=== PATIENT | female | born 1985 | race Hispanic/Latino ===

== ENCOUNTER 2022-11-29 18:33 | Emergency (ER) | payer OTHER ==
[~2022-11-29] VITALS: Ht 144.8 cm; Wt 72.6 kg
[2022-11-29 18:37] VITALS: BP 160/96; PULSE 106; RESP 16; O2SAT 99
[2022-11-29 18:54] LABS: BASOPHILS # (AUTO) 0.05 K/uL (0.00-0.20); BASOPHILS % (AUTO) 0.5 % (0.0-5.0); EOSINOPHILS # (AUTO) 0.14 K/uL (0.00-0.70); EOSINOPHILS % (AUTO) 1.5 % (0.0-8.0); HEMATOCRIT 45.9 % (36-48); IMMATURE GRANULOCYTE ABSOLUTE 0.03 K/uL (0-1); LYMPHOCYTES # (AUTO) 2.9 K/uL (1.0-4.8); LYMPHOCYTES % (AUTO) 31.8 % (21.0-51.0); MEAN CORPUSCULAR HEMOGLOBIN 31.3 pg (27.0-33.0); MEAN CORPUSCULAR HGB CONC 35.5 g/dL (32.0-36.0); MEAN CORPUSCULAR VOLUME 88.1 fL (79-99); MONOCYTES # (AUTO) 0.5 K/uL (0.1-1.0); MONOCYTES % (AUTO) 5.6 % (3.0-13.0); NEUTROPHILS # (AUTO) 5.6 K/uL (1.8-7.7); NEUTROPHILS % (AUTO) 60.3 % (40.0-77.0); PLATELET COUNT (AUTO) 206 K/uL (130-400); RED BLOOD CELL COUNT(AUTO) 5.21 MIL/uL (4.00-5.50); RED CELL DISTRIBUTION WIDTH 11.9 % (11.0-15.5); WHITE BLOOD COUNT (AUTO) 9.2 K/uL (4.8-10.8)
[2022-11-29 19:08] LABS: POTASSIUM 3.7 mmol/L (3.5-5.1)
[2022-11-29 19:12] LABS: ALBUMIN 3.4 g/dL (3.5-5.0); BILIRUBIN,TOTAL 0.6 mg/dL (0.2-1.0); TOTAL PROTEIN, SERUM 7.6 g/dL (6.0-8.3)
[2022-11-29 22:21] LABS: APPEARANCE,URINE CLOUDY (CLEAR); BILIRUBIN,URINE NEGATIVE (NEGATIVE); COLOR,URINE LIGHT-BROWN (YELLOW); GLUCOSE, URINE (UA) >=1000 mg/dL (NEGATIVE); KETONES,URINE NEGATIVE (NEGATIVE); LEUKOCYTE ESTERASE ,URINE 25 Leu/uL (NEGATIVE); NITRATE,URINE NEGATIVE (NEGATIVE); OCCULT BLOOD,URINE LARGE (NEGATIVE); PH,URINE 5.5 (5.0-8.0); PROTEIN,URINE 20 mg/dL (NEGATIVE); UROBILINOGEN,URINE 0.2 mg/dL (0.2-1.0)
[2022-11-29 22:24] LABS: ADD UA MICROSCOPIC YES
[2022-11-29 22:36] LABS: RBC,URINE TNTC /HPF (0-1); SQUAMOUS EPITHELIAL CELL,UR RARE /HPF (0-2); WBC,URINE TNTC /HPF (0-1); YEAST,URINE BUDDING RARE /HPF (None Seen)
[2022-11-29] MEDS ORDERED: SULF1TAB42 PO (22:49)
== END 2022-11-29 22:43 | disposition home or self-care (01) ==
LOC: EDH 18:33
DX: N93.8 Other specified abnormal uterine and vaginal bleeding (principal); Z88.0 Allergy status to penicillin
CPT/HCPCS: 36415; 80053; 81001; 81025; 85025; 87088

== ENCOUNTER 2024-05-20 00:40 | Emergency (ER) | payer MEDICAID ==
[~2024-05-20] VITALS: Ht 139.7 cm; Wt 68.0 kg
[~2024-05-20 00:40] MED LIST: PREN-134 PO; SULF1TAB42 PO
--- NOTE | 2024-05-20 00:59 | ERN ---
ED Note History of Present Illness Stated Complaint: C/O VAGINAL SPOTTING WITH ABD PAIN; 2 WKS PREGNAN Chief Complaint: Vaginal Bleeding Time Seen by MD: 00:44 Time Seen by Midlevel: 00:44 Dictation: The patient is a 38-year-old female with no past medical history who presents to the emergency department with vaginal bright red body onset today associated with suprapubic abdominal pain. Patient denies any nausea, vomiting, fevers, diarrhea or constipation. Denies any urinary discomfort. Patient reports she is but has not been able to follow up with a an OBGYN. Reports she has a scheduled until June. A1 Allergies: Coded Allergies: Penicillins (Unverified Allergy, Unknown, 11/29/22) Home Meds Active Scripts Vit/Iron Fumarate/FA ( Tablet) 27 Mg Iron-800 Mcg Tablet, 1 TAB PO DAILY for 30 Days, #30 TAB 0 Refills Prov:TYRA DUNN 05/16/24 Sulfamethoxazole/Trimethoprim (Bactrim Ds Tablet) 1 Each Tablet, 1 TAB PO BID for 7 Days, #14 TAB 0 Refills Prov:IGNACIO BOWLING 11/29/22 Past Medical History Past Medical History: No Pertinent History Surgical History: None Family History: Negative Social History: Negative, Lives with family LMP: Mar 26, 2024 : 2 Para: 0 Aborts: 1 RN Note Reviewed/Agreed w/PFSH: Yes Review of System Dictation Constitutional: Negative for fever,chills, and weight loss Eyes: Negative for injury, pain,redness, and discharge ENT: Negative for injury,pain or swelling Cardiovascular: Negative for chest pain, palpitations, and edema Respiratory: Negative for shortness of breath, cough, and wheezing, Abdomen/GI: Negative for abdominal pain, nausea, vomiting, diarrhea, and constipation Back: Negative for injury and pain : Negative for injury,and discharge positive for bleeding MS/Extremity: Negative for injury and deformity Skin: Negative for rash, and discoloration Neuro: Negative for headache, weakness, numbness, tingling, and seizure Psych: Negative for suicide ideation, homicidal ideation, and hallucinations Initial Vital Sign VS Vital Signs Date Time Temp Pulse Resp B/P (MAP) Pulse Ox O2 Delivery O2 Flow Rate FiO2 05/20/24 00:41 98.4 70 20 154/86 100 Room Air Physical Exam Dictation Vital Signs reviewed General Appearance: Alert, oriented x 3, no acute distress, well developed, nourished. Head and Face: non-traumatic. Eyes: PERRL, pink conjunctivas, eyelid no trauma, anterior chamber with arcus senilis. Ears: Pinnas intact and no signs of trauma or erythema ear canals clear and no discharge TM no erythema Nose: No discharge, no bleeding. Oropharynx: Mouth normal, tongue pink. pharynx clear,no erythema, tonsils no exudates, no abscesses noted, mucous membrane moist Neck: Supple, non-tender, no thyromegaly, no masses, no JVD, no bruits Breast:Deferred Chest:No tenderness, no crepitus, no paradoxical movement, no retractions Lungs:Clear, well-ventilated, symmetric, no rales, no wheezing, no rhonchi, no stridor, good breath sounds bilaterally Heart: Regular rate, regular rhythm, no murmur, no gallops Vascular: no peripheral edema, Abdomen: Soft, positive bowel sounds, nondistended, no guarding, nontender, no rebound, no masses no hepatomegaly, no splenomegaly, no Velazquez's sign, no hernias. Rectal: Deferred Genital: Deferred Neurological: Normal speech, motor function intact, sensory function intact Musculoskeletal: Neck nontender, full range of motion, back nontender, full range of motion, Extremities: nontender, full range of motion Skin: Color pink, dry, no turgor, no rash, no lacerations, no abrasions, no contusions. Lymphatic: Deferred Results (Laboratory/Radiology) Laboratory/Radiology Laboratory Tests Test 05/20/24 01:13 05/20/24 02:22 White Blood Count 10.2 K/uL (4.8-10.8) Red Blood Count 5.08 MIL/uL (4.00-5.50) Hemoglobin 16.4 g/dL (12.0-16.0) H Hematocrit 45.0 % (36-48) Mean Corpuscular Volume 88.6 fL (79-99) Mean Corpuscular Hemoglobin 32.3 pg (27.0-33.0) Mean Corpuscular Hemoglobin Concent 36.4 g/dL (32.0-36.0) H Red Cell Distribution Width 12.2 % (11.0-15.5) Platelet Count 201 K/uL (130-400) Mean Platelet Volume 10.7 fL (7.5-10.5) H Immature Granulocyte % (Auto) 0.6 % (0-1) Neutrophils (%) (Auto) 60.7 % (40.0-77.0) Lymphocytes (%) (Auto) 30.0 % (21.0-51.0) Monocytes (%) (Auto) 6.8 % (3.0-13.0) Eosinophils (%) (Auto) 1.6 % (0.0-8.0) Basophils (%) (Auto) 0.3 % (0.0-5.0) Neutrophils # (Auto) 6.2 K/uL (1.8-7.7) Lymphocytes # (Auto) 3.1 K/uL (1.0-4.8) Monocytes # (Auto) 0.7 K/uL (0.1-1.0) Eosinophils # (Auto) 0.16 K/uL (0.00-0.70) Basophils # (Auto) 0.03 K/uL (0.00-0.20) Absolute Immature Granulocyte (auto 0.06 K/uL (0-1) Nucleated Red Blood Cells 0.0 % (0.0-0.19) Red Blood Cell Morphology See comments Sodium Level 134 mmol/L (136-145) L Potassium Level 4.1 mmol/L (3.5-5.1) Chloride Level 100 mmol/L (101-111) L Carbon Dioxide Level 28 mmol/L (21-32) Blood Urea Nitrogen 15 mg/dL (7-18) Creatinine 0.8 mg/dL (0.5-1.0) Glomerular Filtration Rate Calc 95 mL/min (>90) Random Glucose 254 mg/dL (70-105) H Total Calcium 9.3 mg/dL (8.5-10.1) Human Chorionic Gonadotropin, Quant 241 mIU/mL (0-5) H Urine Color LIGHT-YELLOW (YELLOW) Urine Appearance CLEAR (CLEAR) Urine pH 5.0 (5.0-8.0) Urine Specific Roff 1.029 (1.001-1.031) Urine Protein NEGATIVE mg/dL (NEGATIVE) Urine Glucose (UA) >=1000 mg/dL (NEGATIVE) H Urine Ketones NEGATIVE mg/dL (NEGATIVE) Urine Occult Blood MODERATE (NEGATIVE) H Urine Nitrate NEGATIVE (NEGATIVE) Urine Bilirubin NEGATIVE mg/dL (NEGATIVE) Urine Urobilinogen 0.2 mg/dL (0.2-1.0) Urine Leukocyte Esterase NEGATIVE Segun/uL Labs Reviewed?: Yes ED Course ED Course Orders Procedure Category Date Status Time Cbc With Differential LAB 05/20/24 Complete 00:52 Us Ob <14 Weeks US 05/20/24 Taken 00:52 0.9%Nacl 1000ml (Ns PHA 05/20/24 Complete 1000ml) 01:00 Acetaminophen 325 Tab PHA 05/20/24 Complete (Tylenol 325mg Tab 01:00 Basic Metabolic Panel LAB 05/20/24 Complete 00:52 Urinalysis Profile LAB 05/20/24 In Process 00:52 Hcg,Quantitative LAB 05/20/24 Complete 00:52 Current Medications Medications (Trade) Dose Ordered Sig/Lobo Route PRN Reason Start Time Stop Time Status Last Admin Dose Admin Acetaminophen (TYLenol 325MG TAB) 650 mg ONCE ONCE PO 05/20/24 01:00 05/20/24 01:01 DC 05/20/24 01:23 Sodium Chloride 1,000 ml @ 0 mls/hr ONCE ONCE IV 05/20/24 01:00 05/20/24 01:01 DC 05/20/24 01:24 Vital Signs Date Time Temp Pulse Resp B/P (MAP) Pulse Ox O2 Delivery O2 Flow Rate FiO2 05/20/24 00:41 98.4 70 20 154/86 100 Room Air Medical Decision Making MDM The patient is a 38-year-old female with no past medical history who presents to the emergency department with vaginal bright red body onset today associated with suprapubic abdominal pain. Patient denies any nausea, vomiting, fevers, diarrhea or constipation. Denies any urinary discomfort. Patient reports she is but has not been able to follow up with a an OBGYN. Reports she has a scheduled until June. A1 CBC showed no leukocytosis, no anemia, chemistry showed hyperglycemia, hypochloremia, hyponatremia, no DKA patient giving a L of fluids in ER. [id number] which is slightly decreased from previous visit. Urinalysis with no leukocyte esterase, no nitrites Ultrasound revealed no IUP. Could be related to early . Ultrasound unchanged from previous visit of 05/16/2024. Cul-de-sac within normal limits. Patient in no acute distress, stable vital signs, nontoxic appearance. We will be discharged to follow up with OBGYN. Patient instructed to return if symptoms worsen, severe bleeding develops. Patient reports only spotting at this time. Differential diagnosis: Ectopic , threatened , UTI Need for hospitalization: Patient does not meet criteria for hospitalization. There are no social concerns with this patient. DX & DISP Disposition: Discharge Departure Impression: Primary Impression: Positive test Additional Impressions: Vaginal bleeding, Elevated blood sugar Condition: Stable Additional Instructions: Please follow up with your primary doctor in 1-2 days. Please try to follow up with OBGYN as soon as possible. Symptoms worsen you develop severe vaginal bleeding, dizziness, syncope please return to ER. FOLLOW-UP WITH PRIMARY CARE PROVIDER IN 1 TO 2 DAYS. TAKE MEDICATIONS DIRECTED HERE IN THE EMERGENCY ROOM. OKAY TO CONTINUE HOME MEDICATIONS UNLESS OTHERWISE DISCUSSED DURING YOUR VISIT IN THE EMERGENCY ROOM TODAY. RETURN TO YOUR NEAREST EMERGENCY ROOM IF SYMPTOMS WORSEN OR IF THERE IS NO IMPROVEMENT. CALL 911 IF YOU NEED IMMEDIATE ASSISTANCE. TAKE TYLENOL [id number] NEEDED AND IF NO CONTRAINDICATIONS ARE PRESENT. INCREASE ORAL HYDRATION. A WOUND CULTURE OR URINE CULTURE WAS ORDERED HERE IN THE EMERGENCY ROOM DEPARTMENT PLEASE FOLLOW-UP WITH PRIMARY CARE PROVIDER AND ADVISE THEM TO GET REPEAT PORTS FROM OUR FACILITY. IF YOU HAD ANY GERHARD WRAP/SPLINTS THAT WERE APPLIED HERE, PLEASE DO NOT REMOVE THEM UNTIL YOU SEE YOUR PRIMARY CARE OR SPECIALTY. Referrals: SELF,REFERRAL (PCP) Time of Disposition: 02:58 I have reviewed the case, and I agree with, Diagnosis and Plan RANDALL ZHU May 20, 2024 00:58
[2024-05-20 01:20] LABS: BASOPHILS # (AUTO) 0.03 K/uL (0.00-0.20); BASOPHILS % (AUTO) 0.3 % (0.0-5.0); EOSINOPHILS # (AUTO) 0.16 K/uL (0.00-0.70); EOSINOPHILS % (AUTO) 1.6 % (0.0-8.0); IMMATURE GRANULOCYTE ABSOLUTE 0.06 K/uL (0-1); LYMPHOCYTES # (AUTO) 3.1 K/uL (1.0-4.8); MEAN CORPUSCULAR HEMOGLOBIN 32.3 pg (27.0-33.0); MEAN CORPUSCULAR HGB CONC 36.4 g/dL (32.0-36.0); MEAN CORPUSCULAR VOLUME 88.6 fL (79-99); MONOCYTES # (AUTO) 0.7 K/uL (0.1-1.0); MONOCYTES % (AUTO) 6.8 % (3.0-13.0); NEUTROPHILS # (AUTO) 6.2 K/uL (1.8-7.7); NEUTROPHILS % (AUTO) 60.7 % (40.0-77.0); PLATELET COUNT (AUTO) 201 K/uL (130-400); RED BLOOD CELL COUNT(AUTO) 5.08 MIL/uL (4.00-5.50); RED CELL DISTRIBUTION WIDTH 12.2 % (11.0-15.5); WHITE BLOOD COUNT (AUTO) 10.2 K/uL (4.8-10.8)
[2024-05-20] MEDS: acetaMINOPHEN 325 MG TAB PO ONE (01:23)
[2024-05-20] MEDS: 0.9%NACL 1000ML 1,000 ML IV ONE (01:24)
[2024-05-20 01:47] LABS: CREATININE 0.8 mg/dL (0.5-1.0); POTASSIUM 4.1 mmol/L (3.5-5.1)
[2024-05-20 02:38] LABS: APPEARANCE,URINE CLEAR (CLEAR); BILIRUBIN,URINE NEGATIVE (NEGATIVE); COLOR,URINE LIGHT-YELLOW (YELLOW); GLUCOSE, URINE (UA) >=1000 mg/dL (NEGATIVE); KETONES,URINE NEGATIVE (NEGATIVE); LEUKOCYTE ESTERASE ,URINE NEGATIVE Leu/uL (NEGATIVE); NITRATE,URINE NEGATIVE (NEGATIVE); OCCULT BLOOD,URINE MODERATE (NEGATIVE); PROTEIN,URINE NEGATIVE (NEGATIVE); UROBILINOGEN,URINE 0.2 mg/dL (0.2-1.0)
[2024-05-20 02:42] LABS: ADD UA MICROSCOPIC YES
[2024-05-20 02:55] LABS: RBC,URINE 0-1 /HPF (0-1); SQUAMOUS EPITHELIAL CELL,UR RARE /HPF (0-2); WBC,URINE 0-1 /HPF (0-1)
[2024-05-20 03:02] VITALS: BP 124/66; PULSE 66; RESP 20; TEMP 98.6; O2SAT 100
--- NOTE | 2024-05-20 09:49 | HMCIMG ---
US OB <14 WEEKS HISTORY: Vaginal bleeding COMPARISON: 05/16/2024 TECHNIQUE: Obstetrical ultrasound study was performed. FINDINGS: The uterus measures 8 x 4 x 5 centimeter. Right ovary measures 3 x 2 x 2 centimeter. Left ovary measures 2 x 2 x 3 centimeter. Flow is seen in both ovaries. No evidence of intrauterine gestational sac is seen. In a patient with positive test, differential diagnosis would include early versus ectopic versus missed . Beta-hCG correlation is recommended. No fluid is seen in the cul-de-sac. IMPRESSION: 1. No evidence of intrauterine gestational sac is seen. In a patient with positive test, differential diagnosis would include early versus ectopic versus missed . Beta-hCG correlation is recommended.
== END 2024-05-20 03:06 | disposition home or self-care (01) ==
LOC: EDH 00:40
DX: O26.891 Other specified pregnancy related conditions, first trimester (principal); O20.9 Hemorrhage in early pregnancy, unspecified; Z32.01 Encounter for pregnancy test, result positive; R73.9 Hyperglycemia, unspecified; Z3A.01 Less than 8 weeks gestation of pregnancy; Z79.899 Other long term (current) drug therapy; Z88.0 Allergy status to penicillin
CPT/HCPCS: 99284; 96360; 76801; 80048; 84702; 85025; 81001; 36415; J7030